=== PATIENT | female | born 1985 | race Caucasian/White ===

== ENCOUNTER 2017-08-31 12:11 | Emergency (ER) | payer OTHER ==
[2017-08-31 13:14] LABS: BASOPHIL % 0.5 % (0-2); PLATELET COUNT 301 x10^3mcL (130-400); RED CELL DISTRIBUTION WIDTH 12.6 % (11.5-14.5)
[2017-08-31 13:26] LABS: CALCIUM 8.6 mg/dL (8.5-10.1); CARBON DIOXIDE 27.8 mmol/L (21-32); CHLORIDE SERUM 103 mmol/L (98-107); GFR1 > 60 mL/min; GLUCOSE SERUM 98 mg/dL (74-106); POTASSIUM SERUM 3.6 mmol/L (3.5-5.1); SODIUM SERUM 139 mmol/L (136-145)
[2017-08-31 13:38] LABS: ALBUMIN 3.9 g/dL (3.4-5.0); ALKALINE PHOSPHATASE 64 U/L (46-116); ALT/SGPT 22 U/L (14-59); AMYLASE 27 U/L (25-115); AST/SGOT 16 U/L (15-37); BILIRUBIN TOTAL 0.4 mg/dL (0.20-1.00); CHOLESTEROL 239 mg/dL (<200); HDL CHOLESTEROL 82 mg/dL (40-60); LIPASE 153 IU/L (73-393); T4(THYROXINE) 8.6 ug/dL (4.7-13.3); TOTAL PROTEIN, SERUM 7.7 g/dL (6.4-8.2)
[2017-08-31 14:01] LABS: microscopic required? NO
[2017-08-31 14:42] LABS: UA SPECIFIC GRAVITY <=1.005 (1.005-1.035); urine erythrocyte NEGATIVE (NEGATIVE)
[2017-08-31 14:47] LABS: AMPHETAMINE QUAL UR NONE DETECTED (NEG <=1000)
[2017-08-31 15:58] VITALS: BP 120/88
== END 2017-08-31 15:58 | disposition home or self-care (01) ==
LOC: ED 12:11
PROVIDERS: Emergency Medicine
DX: R07.89 Other chest pain (principal); F12.90 Cannabis use, unspecified, uncomplicated; E07.9 Disorder of thyroid, unspecified
CPT/HCPCS: 36415; 83880; 85378

== ENCOUNTER 2018-05-29 19:06 | Emergency (ER) | payer OTHER ==
[~2018-05-29] VITALS: Ht 152.4 cm; Wt 87.5 kg
[2018-05-29 19:21] VITALS: Ht 152.4 cm; Wt 87.5 kg
[2018-05-29 21:56] VITALS: BP 123/75
== END 2018-05-29 21:56 | disposition home or self-care (01) ==
LOC: ED 19:06
DX: G43.909 Migraine, unspecified, not intractable, without status migrainosus (principal); R03.0 Elevated blood-pressure reading, without diagnosis of hypertension; Z88.0 Allergy status to penicillin; Z98.51 Tubal ligation status
CPT/HCPCS: J1885; J2765; J3010; Q0162

== ENCOUNTER 2018-06-17 05:15 | Emergency (ER) | payer OTHER ==
[~2018-06-17] VITALS: Ht 170.2 cm; Wt 83.9 kg
[2018-06-17 05:20] VITALS: Ht 170.2 cm; Wt 83.9 kg
[2018-06-17 08:41] VITALS: BP 107/74
== END 2018-06-17 08:41 | disposition home or self-care (01) ==
LOC: ED 05:15
DX: G43.909 Migraine, unspecified, not intractable, without status migrainosus (principal); Z88.0 Allergy status to penicillin; Z98.51 Tubal ligation status
CPT/HCPCS: J1885; J2270; Q0162